=== PATIENT | male | born 1955 | race Caucasian/White ===

== ENCOUNTER 2017-08-31 06:55 | Inpatient (IN) | payer OTHER ==
[2017-08-04 11:55] VITALS: Ht 175.3 cm; Wt 106.5 kg
--- NOTE | 2017-08-04 12:08 | PAT Medication Instructions ---
Service Date Aug 04, 2017. Current Home Medication List Allopurinol (Zyloprim), 300 MG PO HS Amlodipine (Norvasc), 5 MG PO HS Aspirin (Aspirin Ec), 81 MG PO HS Clemastine Fumarate (Clemastine Fumarate), 2.68 MG PO HS Epinephrine (Epipen), 0.3 MG IM UD PRN for BEESTING Fish Oil ([place]-3), 1 CAP PO HS Fluticasone Propionate (Inhala (Flovent Diskus), 1 PUFFS INH BID PRN for PRN Krill Oil (Krill Oil), 1 CAP PO QHS Lisinopril (Zestril), 2.5 MG PO HS Pantoprazole (Protonix), 40 MG PO HS Pravastatin Sodium (Pravastatin Sodium), 1 TAB PO HS Tramadol (Ultram), 50 MG PO Q4H PRN for Pain Venlafaxine Hcl (Effexor Extended Rel), 150 MG PO HS Medication Instructions For Your Scheduled Surgery - Hold the following medications 2 weeks prior to surgery: Fish Oil ([place]-3), 1 CAP PO HS Krill Oil (Krill Oil), 1 CAP PO QHS - Take the following medications the morning of surgery with a sip of water OTHERWISE NOTHING TO EAT OR DRINK AFTER MIDNIGHT: Tramadol (Ultram), 50 MG PO Q4H PRN for Pain (may take if needed up to 4 hours prior to surgery) Fluticasone Propionate (Inhala (Flovent Diskus), 1 PUFFS INH BID PRN for PRN - Take the following medications as scheduled the night before surgery: Pantoprazole (Protonix), 40 MG PO HS Pravastatin Sodium (Pravastatin Sodium), 1 TAB PO HS Venlafaxine Hcl (Effexor Extended Rel), 150 MG PO HS Tramadol (Ultram), 50 MG PO Q4H PRN for Pain Allopurinol (Zyloprim), 300 MG PO HS Amlodipine (Norvasc), 5 MG PO HS Aspirin (Aspirin Ec), 81 MG PO HS Clemastine Fumarate (Clemastine Fumarate), 2.68 MG PO HS Fluticasone Propionate (Inhala (Flovent Diskus), 1 PUFFS INH BID PRN for PRN - Do Not Take the following medications the night before surgery: Lisinopril (Zestril), 2.5 MG PO HS If you have any questions please call us at [phone] or [phone] or [phone]
--- NOTE | 2017-08-04 12:53 | DIAGNOSTIC IMAGING REPORT ---
CHEST 2 VIEWS ROUTINE CLINICAL HISTORY: Preoperative chest COMPARISON STUDY: No previous studies for comparison. FINDINGS: Mild prominence the right mid mediastinum, is likely secondary to a tortuous/ectatic ascending thoracic aorta. The heart is normal in size. There is no failure. There are no pleural effusions.[ There is no focal pulmonary consolidation. IMPRESSION: No active disease in the chest. Electronically signed by: Cristo Rausch M.D. 08/04/2017 12:52 PM Dictated Date/Time: 08/04/2017 12:51 PM
[2017-08-04 12:54] LABS: BASO ABS # 0.08 K/uL (0-0.2); EOS % 4.4 %; EOS ABS # 0.34 K/uL (0-0.5); HEMATOCRIT 44.9 % (42-52); HEMOGLOBIN 15.5 g/dL (14.0-18.0); IG# 0.01 K/uL (0.00-0.02); LYMPH % 38.8 %; MEAN CELL VOLUME 98.9 fL (80-100); MEAN CORPUSCULAR HEMOGLOBIN 34.1 pg (25-34); MEAN CORPUSCULAR HGB CONC 34.5 g/dl (32-36); MEAN PLATELET VOLUME 10.9 fL (7.4-10.4); MONO % 5.8 %; MONO ABS # 0.45 K/uL (0.11-0.59); NEUT % 49.9 %; NEUT ABS # 3.85 K/uL (1.4-6.5); PLATELET COUNT 144 K/uL (130-400); RED CELL DISTRIBUTION WIDTH CV 13.9 % (11.5-14.5); RED CELL DISTRIBUTION WIDTH SD 49.6 fL (36.4-46.3); WHITE BLOOD COUNT 7.73 K/uL (4.8-10.8)
[2017-08-04 13:23] LABS: CALCIUM 9.5 mg/dl (8.5-10.1); CREATININE 1.09 mg/dl (0.60-1.40); POTASSIUM 4.3 mmol/L (3.5-5.1)
[2017-08-31] VITALS (10 sets, daily range): BP systolic 130–146; BP diastolic 63–74; PULSE 70–94; TEMP 36.4–36.9; O2SAT 92–98
[~2017-08-31] VITALS: Ht 175.3 cm; Wt 106.5 kg
[~2017-08-31 06:55] MED LIST: ALLO300T2 PO; AMLO-110 PO; ASPI81TA28 PO; ATROPINE SULFATE 0.1 MG/ML 5ML SYR IV PRN; CEFAZOLIN 2000MG IV PUSH 10 ML IV SCH; CLEM2.68 PO; EPP3/2 IM; EpHEDrine SULFATE INJ 50 MG/ML AMP IV PRN; FENTANYL CITRATE INJ 50 MCG/1 ML 2 ML VIAL IV PRN; FENTANYL CITRATE INJ 50 MCG/1 ML 2 ML VIAL ONE; FLUT1AER5 INH; KRIL1000 PO; LACTATED RINGER'S 1000ML 1,000 ML IV SCH; LISI-729 PO; MIDAZOLAM HCL 1 MG/ML 2ML VIAL ONE; MoRPHine SULFATE 10 MG/ML CARP/VIAL IV PRN; OMEG10007 PO; ONDANSETRON INJ 2 MG/ML 2 ML VIAL IV PRN; PANT40TA PO; PRAV80TA2 PO; TRAM-10 PO; VENL150C56 PO
[2017-08-31] MEDS ORDERED: BUPIVACAINE/EPINEPHRINE 0.5% MPF 1:200,000 30 ML VIAL ONE (07:00)
[2017-08-31] MEDS ORDERED: BACITRACIN 50000 UNIT VIAL ONE (07:00)
[2017-08-31] MEDS ORDERED: THROMBIN FOR SOLN 20000 UNIT KIT ONE (07:01)
--- NOTE | 2017-08-31 07:32 | History & Physical Bridge Note ---
H&P Re-Evaluation Bridge Note: I have examined the patient, reviewed the History & Physical and in the interval since the performance of the History & Physical I have noted the following changes of clinical significance: No changes noted
--- NOTE | 2017-08-31 07:33 | History and Physical ---
History & Physical Date Aug 31, 2017. Chief Complaint Back and leg pain History of Present Illness The patient is a 62 year old male with complaints of back and leg pain Past Medical/Surgical History Medical Problems: (1) DDD (degenerative disc disease) Additional History Hepatic Disease: No Endocrine Disorder: No Kidney Disease: No Hypertension: Yes Heart Disease: No Bleeding Tendencies: No Infectious Diseases: No Allergies Coded Allergies: Adhesives (Verified Allergy, Unknown, REDDNESS, ITCHING, 08/31/17) BEE STING (Verified Allergy, Unknown, SWELLING, 08/31/17) Oxacillin (Verified Adverse Reaction, Mild, N/V, 08/31/17) Home Medications Scheduled Allopurinol (Zyloprim), 300 MG PO HS Amlodipine (Norvasc), 5 MG PO HS Aspirin (Aspirin Ec), 81 MG PO HS Clemastine Fumarate (Clemastine Fumarate), 2.68 MG PO HS Fish Oil ([place]-3), 1 CAP PO HS Krill Oil (Krill Oil), 1 CAP PO QHS Lisinopril (Zestril), 2.5 MG PO HS Pantoprazole (Protonix), 40 MG PO HS Pravastatin Sodium (Pravastatin Sodium), 1 TAB PO HS Venlafaxine Hcl (Effexor Extended Rel), 150 MG PO HS Scheduled PRN Epinephrine (Epipen), 0.3 MG IM UD PRN for BEESTING Fluticasone Propionate (Inhala (Flovent Diskus), 1 PUFFS INH BID PRN for PRN Tramadol (Ultram), 50 MG PO Q4H PRN for Pain Physical Examination Skin: warm/dry, no rash Eyes: normal inspection, EOMI, sclerae normal ENT: normal ENT inspection, pharynx normal Head: normocephalic, atraumatic Neck: supple, no adenopathy, trachea midline Respiratory/Chest: lungs clear, normal breath sounds, no respiratory distress Cardiovascular: regular rate, rhythm, no edema, no murmur Abdomen / GI: normal bowel sounds, non tender Back: normal inspection Extremities: normal inspection, normal range of motion Neurologic/Psych: no motor/sensory deficits, alert, normal reflexes, oriented x 3 Diagnosis Lumbar spinal stenosis with nonunion L3 4 Plan of Treatment Removal of hardware L3 4 L4 5 revision fusion L3 4 possible L2-3
[2017-08-31] MEDS ORDERED: FLUT0.15 (07:42)
[2017-08-31] MEDS ORDERED: HYDROmorphone INJ 2 MG/ML SYR/VIAL ONE ×3 (08:06→10:15)
[2017-08-31] MEDS ORDERED: FENTANYL CITRATE INJ 50 MCG/1 ML 2 ML VIAL ONE ×2 (08:06)
[2017-08-31] MEDS ORDERED: DEXAMETHASONE SOD INJ 4 MG/ML VIAL ONE (09:30)
[2017-08-31] MEDS ORDERED: ONDANSETRON INJ 2 MG/ML 2 ML VIAL ONE ×2 (09:30→10:22)
[2017-08-31] MEDS ORDERED: LIDOCAINE HCL 2% 2 ML VIAL (20MG/ML) ONE (09:30)
[2017-08-31] MEDS ORDERED: ROCURONIUM BROMIDE 10 MG/ML 5 ML VIAL IV ONE (09:30)
[2017-08-31] MEDS ORDERED: PROPOFOL IV EMULSION 10 MG/ML 20 ML VIAL IV ONE (09:30)
[2017-08-31] MEDS ORDERED: FLOSEAL HEMOSTATIC MATRIX 10ML TOP ONE (09:49)
--- NOTE | 2017-08-31 10:15 | DIAGNOSTIC IMAGING REPORT ---
INTRAOPERATIVE LUMBAR SPINE 2 VIEWS CLINICAL HISTORY: L3-L5 REMOVAL OF HARDWARE/L3-L4 REVISION FUSION POSS. L2-L3 COMPARISON STUDY: 12/31/2015 FINDINGS: 2 intraoperative fluoroscopic spot images are provided for interpretation. 14 seconds of fluoroscopic time was utilized. There are postsurgical changes of discectomies and interbody fusions at the L3-4, and L4-5 levels. There are pedicle screws present the L2, L3, L4, and L5 levels with adjoining spinal rods. IMPRESSION: Intraoperative radiographs as described above. Electronically signed by: Cristo Rausch M.D. 08/31/2017 10:13 AM Dictated Date/Time: 08/31/2017 10:10 AM
[2017-08-31] MEDS: LACTATED RINGER'S 1000ML 1,000 ML IV SCH ×3 (10:20→22:17)
[2017-08-31] MEDS ORDERED: SODIUM CHLORIDE 0.9% 1000ML 1,000 ML IV SCH (10:20)
[2017-08-31] MEDS ORDERED: NEOSTIGMINE METHYLSULFATE 1 MG/ML 10ML VIAL ONE (10:22)
[2017-08-31] MEDS ORDERED: EpHEDrine SULFATE 50MG/5ML SYR ONE (10:22)
[2017-08-31] MEDS ORDERED: KETOROLAC TROMETHAMINE 30 MG/ML VIAL ONE (10:22)
[2017-08-31] MEDS ORDERED: GLYCOPYRROLATE INJ 0.2 MG/ML VIAL ONE (10:22)
[2017-08-31] MEDS ORDERED: ESMOLOL HCL 10 MG/ML 10 ML VIAL ONE (10:22)
[2017-08-31] MEDS ORDERED: EPINEPHRINE ADULT AUTO-INJECT 0.3 MG SYR IM PRN (10:30)
[2017-08-31] MEDS ORDERED: METOCLOPRAMIDE HCL INJ 5 MG/ML 2 ML VIAL IV PRN (10:30)
[2017-08-31] MEDS ORDERED: FAMOTIDINE 20 MG TAB PO PRN (10:30)
[2017-08-31] MEDS ORDERED: ACETAMINOPHEN IV 100 ML IV PRN (10:30)
[2017-08-31] MEDS ORDERED: ONDANSETRON INJ 2 MG/ML 2 ML VIAL IV PRN (10:30)
[2017-08-31] MEDS ORDERED: DO NOT ADMINISTER PNEUMOCOCCAL VACCINE PRN (10:30)
[2017-08-31] MEDS ORDERED: SOD PHOSPHATE/SOD BIPHOSPHATE ENEMA 132 ML BTL PR PRN ×2 (10:30)
[2017-08-31] MEDS ORDERED: ALUMINUM/MAGNESIUM SUSP 30 ML UDC PO PRN (10:30)
[2017-08-31] MEDS ORDERED: NALOXONE HCL 0.4 MG/1 ML VIAL/CARP IV PRN ×3 (10:30)
[2017-08-31] MEDS ORDERED: MAGNESIUM HYDROXIDE SUSP 30 ML UDC PO PRN ×2 (10:30)
[2017-08-31] MEDS ORDERED: LORAZEPAM 0.5 MG TAB PO PRN (10:30)
[2017-08-31] MEDS ORDERED: LORAZEPAM INJ 0.5 MG in SYRINGE 0 ML IV PRN (10:30)
[2017-08-31] MEDS ORDERED: PROMETHAZINE HCL INJ 12.5 MG in SODIUM CHLORIDE 0.9% 50ML 50 ML IV PRN (10:30)
[2017-08-31] MEDS ORDERED: BISACODYL 10 MG SUPP PR PRN ×2 (10:30)
[2017-08-31] MEDS ORDERED: DO NOT ADMINISTER FLU VACCINE PRN (10:30)
--- NOTE | 2017-08-31 10:30 | [facility] Operative Report ---
Operative Report Operative Date Aug 31, 2017. Pre-Operative Diagnosis Lumbar spinal stenosis with nonunion L3-4 Post-Operative Diagnosis Same as preop Procedure(s) Performed #1 removal of posterior segmental instrumentation L3 4 L4 5. #2 expiration of fusion L3 4 L4 5. #3 revision decompression medial facetectomies foraminotomies L2 3 L3 4. #4 posterior spinal fusion L2 3 L3 4 L4 5. #5 placement posterior segmental instrumentation L2 to L5. #6 interbody fusion L3 4. #7 placement peek Cage 14 x 22 mm at L3 4. #8 placement of locally harvested morcellized autograft in the posterior lateral gutters and. #9 placement of infuse collagen sponge commode Master graft the posterior lateral gutters and ostial amp in the interbody space. Surgeon Dr. Andres Stevens Living Specialist Surgeon(s) N/A Estimated Blood Loss 525mL Findings Nonunion with severe spinal stenosis Specimens A. Explanted Lumbar Hardware Description of Procedure Patient was met with preoperatively case discussed all questions are dressed after informed consent obtained patient was taken operative suite underwent intubation placed in a prone position the Martin table on top Cipriano frame. All bony prominences were well-padded eyes inspected to ensure no external pressure placed upon them. This point the lumbar spine was prepped and draped in the normal sterile fashion. Sharp dissection with the assistance of Bovie cautery was performed onto an exposing the lamina and transverse processes of L2 and instrumentation at the L3-L4 and L5 levels bilaterally. Then proceeded remove the hardware bilaterally. Obvious loosening to L3 screw was noted. The fusion was clearly inadequate at the 34 level with motion appreciated. Then performed a revision complete laminectomy of L3 partial laminectomy of L2 addressing severe lateral recess disease. Pedicle screws were then placed in L2 -L3 L4-L5 with the assistance of fluoroscopy into a transforaminal approach on the right a complete discectomy of L3 4 was performed and plate created to subcortical bleeding bone and a 14 x 22 mm peek cage filled with ostial amp tapped in position. Rods and locked and final position bilaterally. Cross- link locked in position. The transverse processes of L2 L3 L4 burred to subcortical bleeding bone. Infuse collagen sponge mask graft locally harvested morcellized autograft was placed in the posterior lateral gutters. 15 round DALJIT drain inserted. Incision was then closed with 1 Vicryl fascia 2-0 Vicryl subcutaneous tediously 4 Monocryl for Ramona closure Steri-Strips sterile dressings placed. Patient we can take PACU stable condition. I attest to the content of the Intraoperative Record and any orders documented therein. Any exceptions are noted below.
[2017-08-31] MEDS ORDERED: DiphenhydrAMINE HCL 50 MG/ML VIAL ONE (10:40)
[2017-08-31] MEDS ORDERED: NURSING VERBAL MED ORDER ONE (10:40)
[2017-08-31] MEDS ORDERED: HYDROmorphone HCL 0.5MG/ML 50 ML CASSETTE ONE (10:59)
--- NOTE | 2017-08-31 12:10 | Anesthesiology Progress Note ---
Anesthesia Post Op Note Date & Time Aug 31, 2017 at 12:09 Vital Signs Pain Intensity: 4.0 Vital Signs Past 12 Hours Date Time Temp Pulse Resp B/P (MAP) Pulse Ox O2 Delivery O2 Flow Rate FiO2 08/31/17 11:54 36.5 91 19 143/67 (92) 97 Nasal Cannula 4.0 08/31/17 11:25 36.6 93 16 146/70 (95) 94 Nasal Cannula 4.0 08/31/17 11:25 94 Nasal Cannula 4.0 08/31/17 11:25 94 Nasal Cannula 4.0 08/31/17 11:15 96 14 162/80 93 Nasal Cannula 4 08/31/17 11:05 36.7 98 17 152/71 94 Nasal Cannula 4 08/31/17 10:55 101 19 122/86 94 Nasal Cannula 4 08/31/17 10:45 106 14 171/73 90 Oxymask 10 08/31/17 10:35 103 15 149/86 95 Oxymask 10 08/31/17 10:27 36.3 97 22 148/60 93 Oxymask 10 08/31/17 07:23 36.4 76 18 140/71 95 Room Air Notes Mental Status: alert / awake / arousable, participated in evaluation Pt Amnestic to Procedure: Yes Nausea / Vomiting: adequately controlled Pain: adequately controlled Airway Patency, RR, SpO2: stable & adequate BP & HR: stable & adequate Hydration State: stable & adequate Anesthetic Complications: no major complications apparent
[2017-08-31] MEDS ORDERED: VOLUVEN IN NSS ONE (12:14)
[2017-08-31] MEDS: HYDROmorphone HCL 0.5MG/ML 50 ML CASSETTE IV PRN ×2 (14:55→23:09)
[2017-08-31] MEDS: CEFAZOLIN IV 2,000 MG in SYRINGE 0 ML IV SCH (16:10)
[2017-08-31] MEDS: DEXAMETHASONE INJ 6 MG in SYRINGE 0 ML IV SCH (18:12)
[2017-08-31] MEDS ORDERED: DOCUSATE SODIUM/SENNA 50/8.6MG TAB PO SCH (21:00)
[2017-08-31] MEDS: PRAVASTATIN SOD 40 MG TAB PO SCH (21:00)
[2017-08-31] MEDS: ALLOPURINOL 300 MG TAB PO SCH (21:27)
[2017-08-31] MEDS: VENLAFAXINE HCL XR 150 MG CAPXR PO SCH (21:27)
[2017-08-31] MEDS: DOCUSATE SODIUM/SENNA 50/8.6MG TAB PO SCH (21:27)
[2017-08-31] MEDS: ASPIRIN 81 MG ECTAB PO SCH (21:27)
[2017-08-31] MEDS: PANTOprazole SOD 40 MG TAB PO SCH (21:27)
[2017-08-31] MEDS: AMLODIPINE BESYLATE 5 MG TAB PO SCH (21:27)
[2017-09-01] VITALS (7 sets, daily range): BP systolic 130–152; BP diastolic 66–80; PULSE 66–83; TEMP 36.5–36.8; O2SAT 92–96
[2017-09-01] MEDS: CEFAZOLIN IV 2,000 MG in SYRINGE 0 ML IV SCH (00:41)
[2017-09-01] MEDS: DEXAMETHASONE INJ 6 MG in SYRINGE 0 ML IV SCH ×2 (02:29→09:11)
[2017-09-01] MEDS: LACTATED RINGER'S 1000ML 1,000 ML IV SCH (05:05)
[2017-09-01] MEDS ORDERED: OXYCODONE HCL IR 5 MG TAB (IMMEDIATE RELEASE) PO PRN (06:00)
[2017-09-01] MEDS ORDERED: DC PCA SCH (06:00)
[2017-09-01] MEDS ORDERED: TRAMADOL HCL 50 MG TAB PO PRN (06:01)
[2017-09-01] MEDS ORDERED: HYDROmorphone INJ 0.5 MG/0.5 ML SYR IV PRN (06:01)
[2017-09-01] MEDS ORDERED: NURSING DECISION MEDICATION ORDER SCH (06:30)
[2017-09-01 06:31] LABS: BASO % 0.1 %; BASO ABS # 0.01 K/uL (0-0.2); EOS % 0.1 %; EOS ABS # 0.01 K/uL (0-0.5); HEMATOCRIT 37.6 % (42-52); HEMOGLOBIN 12.8 g/dL (14.0-18.0); IG# 0.06 K/uL (0.00-0.02); LYMPH % 8.6 %; LYMPH ABS # 1.37 K/uL (1.2-3.4); MEAN CELL VOLUME 99.7 fL (80-100); MEAN PLATELET VOLUME 10.8 fL (7.4-10.4); MONO % 5.3 %; MONO ABS # 0.84 K/uL (0.11-0.59); NEUT % 85.5 %; NEUT ABS # 13.71 K/uL (1.4-6.5); PLATELET COUNT 128 K/uL (130-400); RED CELL DISTRIBUTION WIDTH CV 13.9 % (11.5-14.5); RED CELL DISTRIBUTION WIDTH SD 49.5 fL (36.4-46.3)
[2017-09-01 07:04] LABS: CALCIUM 9.1 mg/dl (8.5-10.1); CREATININE 1.24 mg/dl (0.60-1.40); POTASSIUM 4.9 mmol/L (3.5-5.1)
[2017-09-01] MEDS: hydrOXYzine HCL 25 MG TAB PO PRN ×2 (07:39→15:29)
--- NOTE | 2017-09-01 08:50 | Anesthesiology Progress Note ---
Anesthesia Post Op Note Date & Time Sep 01, 2017 at 08:50 Vital Signs Vital Signs Past 12 Hours Date Time Temp Pulse Resp B/P (MAP) Pulse Ox O2 Delivery O2 Flow Rate FiO2 09/01/17 08:18 96 Room Air 09/01/17 08:08 36.8 74 18 140/80 (100) 96 Room Air 09/01/17 07:30 Room Air 09/01/17 03:10 36.8 83 18 145/73 (97) 92 Room Air 09/01/17 00:10 Room Air 08/31/17 23:04 36.9 81 18 146/63 (90) 92 Room Air 08/31/17 21:31 36.7 70 16 133/69 (90) 98 Room Air Notes Mental Status: alert / awake / arousable, participated in evaluation Pt Amnestic to Procedure: Yes Nausea / Vomiting: adequately controlled Pain: adequately controlled Airway Patency, RR, SpO2: stable & adequate BP & HR: stable & adequate Hydration State: stable & adequate Anesthetic Complications: no major complications apparent
[2017-09-01] MEDS: ACETAMINOPHEN 500 MG TAB PO PRN ×2 (09:14→20:59)
--- NOTE | 2017-09-01 14:15 | Progress Note ---
Progress Note Date of Service Sep 01, 2017. Progress Note Patient is postop day #1. His back pain is well-controlled. His leg symptoms markedly improved. On exam is good strength testing appears comfortable. Assessment status post lumbar decompression fusion. Planned this time will continue physical therapy advance his bowel regimen anticipate possible home Wednesday.
[2017-09-01] MEDS ORDERED: RXC5 PO (14:23)
[2017-09-01] MEDS: KETOROLAC TROMETHAMINE 30 MG/ML VIAL IV PRN ×2 (14:23→21:36)
--- NOTE | 2017-09-01 14:24 | Discharge Instructions ---
Discharge Instructions Date of Service Sep 01, 2017. Admission Reason for Admission: Lumbar Spinal Stenosis Discharge Discharge Diagnosis / Problem: lumber stenosis Discharge Goals Goal(s): Improve function Activity Recommendations Activity Limitations: per Instructions/Follow-up section . Instructions / Follow-Up Instructions / Follow-Up ACTIVITY RECOMMENDATIONS: SELF CARE INSTRUCTIONS AFTER THORACIC/LUMBAR FUSIONS 1. You may walk to your tolerance. It is good exercise for your legs and back. Expect some back and intermittent leg aches and pains. 2. You may perform "counter-top" level activities (make a sandwich, augusto with a project, etc.). 3. No bending or lifting of more than 10 pounds or back twisting of any nature (roll like a log when turning in bed). 4. You may ride in a car for 20-30 minutes at a time. No driving until after your first visit with your doctor. 5. Frequent changes of position and restricting sitting to 30 minutes at a time will help limit the amount of back spasms and stiffness you may experience. 6. You may discontinue the use of ambulatory aids (cane, crutches, etc.) once your strength and confidence allow. 7. You may nuclear radiation engineer the shower and let water strike your incision when you arrive home at least once daily. Do not take a tub bath, sit in a hot tub or go into a swimming pool until after your first recheck in the office. SPECIAL CARE INSTRUCTIONS: VERY IMPORTANT TO READ AND REVIEW A. Your surgical incision has been closed with a cosmetic suture under the skin that will dissolve in about 6 weeks. In 14 days, you can use a pair of clean scissors and cut the suture that is left outside of the skin at the ends of your incision. 1. The small skin tapes can be removed 7 days after surgery if they have not fallen off by that point. 2. You may keep the wound open to air as much as possible to promote healing after post-op day number 5 unless told otherwise by your doctor. 3. If you think the wound looks like it is becoming infected (redness or worsening drainage) and/or you are experiencing fever, chill or worsening back pain and muscle spasms, contact the office so that we may evaluate you as soon as possible. B. Complications are uncommon, but please contact us if you have any signs or symptoms of: 1. wound infection (fever higher than 102.5 degrees F, redness, separation of wound, drainage, or increasing pain from the incision) 2. blood clots in legs (pain, swelling, redness and warmth in legs) 3. urinary tract infection (fever higher than 102.5 degrees F, burning upon urination or increased frequency of urination) 4. nerve problems (inability to walk on your toes or heels, numbness, loss of bowel or bladder control) 5. any other symptoms that concern you C. Please call the office at if you have any concerns or questions about your operation or recovery. D. No smoking! Smoking drastically decreases the chance of a solid fusion. E. Do not take any anti-inflammatory medications (Indocin, Advil, Motrin, Aspirin, Naprosyn, etc.) as these may inhibit the chance of a solid fusion. Tylenol is okay to take for pain. MANAGING PAIN AFTER SPINAL SURGERY 1. Narcotic medication is intended for short-term use and will be provided for surgical pain. Surgical pain usually lasts for a period of 4-6 weeks. Narcotic medication includes Percocet, Vicodin, Darvocet, Tylenol #3 or Lortab. 2. Longer-term pain is more appropriately treated with non-narcotic medication such as Tylenol ES. 3. Muscle spasm is not appropriately treated with narcotics. Muscle relaxers such as Soma, Flexeril or Skelaxin can be used along with Tylenol ES. 4. Remember that we all live with some "aches and pains". This is not unusual or uncommon after an injury or as we get older. a. Back pain is expected and may include muscle spasms for 4 to 6 weeks after surgery. The pain should gradually improve. If the pain worsens for no apparent reason, please contact the office. b. Intermittent leg pain may also be experienced and should not be concerned about unless it worsens for no apparent reason. If so, please contact the office. 5. We will provide appropriate medication within the normal guidelines of their prescribed use. We will also be very cautious and aware of potential abuse and extended duration of patients' medication needs. a. Pain medications are for your comfort and to assist with sleep and rest so that the tissue can heal. They are not provided in order to return to normal activity and should not be used through the day. To do so or worsening pain at night can result from ongoing tissue damage and development of tolerance to the prescribed medicine. 6. Please allow 2-3 days to process refills. Prescriptions will not be mailed but must be picked up at the office. FOLLOW UP VISIT: Keep your scheduled follow-up appointment. Any questions, please call the office at . Current Hospital Diet Patient's current hospital diet: Regular Diet Discharge Diet Recommended Diet: Regular Diet Procedures Procedures Performed: #1 removal of posterior segmental instrumentation L3 4 L4 5. #2 expiration of fusion L3 4 L4 5. #3 revision decompression medial facetectomies foraminotomies L2 3 L3 4. #4 posterior spinal fusion L2 3 L3 4 L4 5. #5 placement posterior segmental instrumentation L2 to L5. #6 interbody fusion L3 4. #7 placement peek Cage 14 x 22 mm at L3 4. #8 placement of locally harvested morcellized autograft in the posterior lateral gutters and. #9 placement of infuse collagen sponge commode Master graft the posterior lateral gutters and ostial amp in the interbody space. Pending Studies Studies pending at discharge: no Medical Emergencies . Who to Call and When: Medical Emergencies: If at any time you feel your situation is an emergency, please call 911 immediately. . Non-Emergent Contact Non-Emergency issues call your: Primary Care Provider . "Provider Documentation" section prepared by Andres Stevens. . VTE Core Measure Inpt VTE Proph given/why not?: Mike Singleton, SCD's
[2017-09-01] MEDS ORDERED: CETIRIZINE HCL 10 MG TAB PO ONE (21:00)
[2017-09-01] MEDS: ASPIRIN 81 MG ECTAB PO SCH (21:00)
[2017-09-01] MEDS: PRAVASTATIN SOD 40 MG TAB PO SCH (21:01)
[2017-09-01] MEDS: VENLAFAXINE HCL XR 150 MG CAPXR PO SCH (21:01)
[2017-09-01] MEDS: ALLOPURINOL 300 MG TAB PO SCH (21:01)
[2017-09-01] MEDS: AMLODIPINE BESYLATE 5 MG TAB PO SCH (21:01)
[2017-09-01] MEDS: DOCUSATE SODIUM/SENNA 50/8.6MG TAB PO SCH (21:01)
[2017-09-01] MEDS: PANTOprazole SOD 40 MG TAB PO SCH (21:01)
[2017-09-02 00:13] VITALS: BP 135/69; PULSE 74; TEMP 36.8; O2SAT 96
[2017-09-02] MEDS: POLYETHYLENE (MIRALAX) 17 GM PACK PO SCH ×2 (05:40→12:00)
[2017-09-02] MEDS ORDERED: POLYETHYLENE (MIRALAX) 17 GM PACK PO SCH (06:00)
[2017-09-02 07:04] VITALS: BP 158/65; PULSE 73; TEMP 36.7; O2SAT 95
[2017-09-02 07:10] VITALS: BP 115/70; PULSE 74; TEMP 36.6; O2SAT 100
[2017-09-02] MEDS ORDERED: CETI10TA84 PO (08:12)
[2017-09-02] MEDS: KETOROLAC TROMETHAMINE 30 MG/ML VIAL IV PRN ×3 (08:14→21:03)
[2017-09-02] MEDS ORDERED: NURSING VERBAL MED ORDER ONE ×2 (08:15→12:30)
--- NOTE | 2017-09-02 08:32 | Progress Note ---
Progress Note Date of Service Sep 02, 2017. Progress Note Patient's back pain is controlled leg pain improved. Vital signs stable. On exam is good strength testing appears comfortable. Assessment status post lumbar depression fusion replant this time will maintain the DALJIT drain another 24 hours in anticipate home tomorrow.
[2017-09-02] MEDS: ACETAMINOPHEN 500 MG TAB PO PRN ×2 (11:17→19:06)
[2017-09-02 15:37] VITALS: BP 138/75; PULSE 64; TEMP 36.6; O2SAT 94
[2017-09-02] MEDS ORDERED: CETIRIZINE HCL 10 MG TAB PO SCH (21:00)
[2017-09-02 21:06] VITALS: BP 122/73; PULSE 62
[2017-09-02] MEDS: VENLAFAXINE HCL XR 150 MG CAPXR PO SCH (21:09)
[2017-09-02] MEDS: ASPIRIN 81 MG ECTAB PO SCH (21:10)
[2017-09-02] MEDS: PANTOprazole SOD 40 MG TAB PO SCH (21:11)
[2017-09-02] MEDS: ALLOPURINOL 300 MG TAB PO SCH (21:11)
[2017-09-02] MEDS: PRAVASTATIN SOD 40 MG TAB PO SCH (21:11)
[2017-09-02] MEDS: DOCUSATE SODIUM/SENNA 50/8.6MG TAB PO SCH (21:12)
[2017-09-02] MEDS: AMLODIPINE BESYLATE 5 MG TAB PO SCH (21:13)
[2017-09-02 23:16] VITALS: BP 155/78; PULSE 66; TEMP 36.4; O2SAT 95
[2017-09-03] MEDS: KETOROLAC TROMETHAMINE 30 MG/ML VIAL IV PRN (05:56)
[2017-09-03 06:15] VITALS: BP 164/77; PULSE 69; TEMP 36.7; O2SAT 94
[2017-09-03 07:46] VITALS: O2SAT 94
[2017-09-03 11:44] VITALS: BP 137/67; PULSE 64; TEMP 37; O2SAT 93
--- NOTE | 2017-09-03 12:31 | Discharge Summary ---
Orthopedic Discharge Summary Admission Date/Reason Aug 31, 2017 at 10:57 Lumbar Spinal Stenosis. Discharge Date/Disposition Sep 03, 2017 Home Diagnosis Principal Diagnosis: Lumbar spinal stenosis Admission Physical Exam As per Admitting History & Physical. Hospital Course Patient 1 lumbar decompression fusion trolleys wound taken to the orthopedic 4 postop we. Postoperative day #1 is up and amatory progressed through postop day 2. Postoperative day #3 DALJIT drain decreased improperly pain well controlled subsequently discharged home. Discharge orders and instructions found the chart for further review. Discharge Instructions Please refer to the electronic Patient Visit Report (Discharge Instructions) for additional information.
== END 2017-09-03 13:08 | disposition home or self-care (01) | DRG 455 ==
LOC: C.ACU 06:55 → C.3E 10:57 → ENRESERV 11:08
PROVIDERS: ADMIT Orthopaedic Surgery Orthopaedic Surgery of the Spine; ATTEND Orthopaedic Surgery Orthopaedic Surgery of the Spine
PROC: 0SG1071 Fusion of 2 or more Lumbar Vertebral Joints with Autologous Tissue Substitute, Posterior Approach, Posterior Column, Open Approach (ICD-10-PCS; principal; 2017-08-31 07:45)
PROC: 0SG00AJ Fusion of Lumbar Vertebral Joint with Interbody Fusion Device, Posterior Approach, Anterior Column, Open Approach (ICD-10-PCS; principal; 2017-08-31 07:45)
PROC: 0ST20ZZ Resection of Lumbar Vertebral Disc, Open Approach (ICD-10-PCS; principal; 2017-08-31 07:45)
PROC: 0QP004Z Removal of Internal Fixation Device from Lumbar Vertebra, Open Approach (ICD-10-PCS; principal; 2017-08-31 07:45)
DX: M48.061 Spinal stenosis, lumbar region without neurogenic claudication (principal); Z98.1 Arthrodesis status